=== PATIENT | female | born 1965 ===

== ENCOUNTER 2018-07-31 12:02 | Emergency (ER) | payer MEDICAID ==
[2018-07-31 12:22] VITALS: O2SAT 98
--- NOTE | 2018-07-31 13:10 | ED PDOC ---
Arrival/HPI - General Chief Complaint: Upper Extremity Problem/Injury Time Seen by Provider: 07/31/18 13:04 Historian: Patient - History of Present Illness Narrative History of Present Illness (Text): 07/31/18 13:08 A 53 year old female, whose past medical history includes hypothyroidism, presents to the emergency department s/p fall on outstretched hand since yesterday. Patient reports she has applied acetaminophen cream for the pain to some relief. Patient denies any fever, shortness of breath, or any other complaints. Time/Duration: 4-6 hours Symptom Onset: Sudden Symptom Course: Unchanged Activities at Onset: Light Context: Walking Past Medical History - Provider Review Nursing Documentation Reviewed: Yes - Infectious Disease Hx of Infectious Diseases: None - Reproductive Menopause: Yes - Endocrine/Metabolic Hx Hypothyroidism: Yes - Musculoskeletal/Rheumatological Hx Arthritis: Yes - Psychiatric Hx Substance Use: No - Surgical History Other/Comment: varicose vein sx - Anesthesia Hx Anesthesia: Yes Hx Anesthesia Reactions: No Hx Malignant Hyperthermia: No Family/Social History - Physician Review Nursing Documentation Reviewed: Yes Family/Social History: No Known Family HX Smoking Status: Never Smoked Hx Alcohol Use: No Hx Substance Use: No Allergies/Home Meds Allergies/Adverse Reactions: Allergies iv dye Adverse Reaction (Uncoded 07/31/18 12:23) ANGIOEDEMA Home Medications: Home Meds Medication Instructions Recorded Confirmed Levothyroxine [Synthroid] 1 tab PO DAILY 07/31/18 07/31/18 Review of Systems - Physician Review All systems were reviewed & negative as marked: Yes - Review of Systems Constitutional: absent: Fevers Respiratory: absent: SOB Physical Exam - Physical Exam Narrative Physical Exam (Text): 07/31/18 13:11 Constitutional: No acute distress. Head: Normocephalic. Atraumatic. Eyes: PERRL. ENT: Moist mucous membranes. Musculoskeletal: Small protrusion to dorsal medial left wrist with flexion, reduces with extension. No snuff box or bony tenderness. Skin: No rash. Neurologic: Alert, no focal deficit. Vital Signs Reviewed: Yes Vital Signs Temp Pulse Resp BP Pulse Ox 07/31/18 12:17 98.2 F 85 19 139/80 98 Temperature: Afebrile Blood Pressure: Normal Pulse: Regular Respiratory Rate: Normal Appearance: Positive for: Well-Appearing, Non-Toxic, Comfortable Pain Distress: None Mental Status: Positive for: Alert and Oriented X 3 Medical Decision Making ED Course and Treatment: 07/31/18 13:10 Impression: 53 year old female presenting to the emergency room s/p fall on out stretched hand. Plan: -- Xray of left wrist -- Reassess and disposition Progress Notes: 07/31/18 14:18 Procedure: Left Wrist Radiographs Impression: Normal left wrist radiographs. Dictator: Nikolas Warner MD 07/31/18 14:19 Wrist splint provided. Ibuprofen for pain. F/u Hand. - Scribe Statement The provider has reviewed the documentation as recorded by the Scribe Joelle Clinton All medical record entries made by the Scribe were at my direction and personally dictated by me. I have reviewed the chart and agree that the record accurately reflects my personal performance of the history, physical exam, medical decision making, and the department course for this patient. I have also personally directed, reviewed, and agree with the discharge instructions and disposition. Disposition/Present on Arrival - Present on Arrival Any Indicators Present on Arrival: No History of DVT/PE: No History of Uncontrolled Diabetes: No Urinary Catheter: No History of Decub. Ulcer: No History Surgical Site Infection Following: None - Disposition Have Diagnosis and Disposition been Completed?: Yes Diagnosis: Ganglion cyst Disposition: HOME/ ROUTINE Disposition Time: 14:21 Patient Plan: Discharge Condition: STABLE Discharge Instructions (ExitCare): Ganglion Cyst Referrals: Eric Ding MD [Staff Provider] - Follow up with primary [facility] [place]] - Follow up with primary Forms: [employer] ([employer])
--- NOTE | 2018-07-31 14:15 | RAD ---
Date of service: 07/31/2018 PROCEDURE: Left Wrist Radiographs. HISTORY: FOOSH COMPARISON: None. FINDINGS: BONES: Normal. No fracture. JOINTS: Normal. No dislocation. SOFT TISSUES: Normal. OTHER FINDINGS: None. IMPRESSION: Normal left wrist radiographs.
[2018-07-31 14:40] VITALS: BP 128/76; PULSE 80; RESP 16; TEMP 98
== END 2018-07-31 14:30 | disposition home or self-care (01) ==
LOC: ED 12:02
DX: M67.432 Ganglion, left wrist (principal); E03.9 Hypothyroidism, unspecified